=== PATIENT | female | born 1935 | race Caucasian/White ===

== ENCOUNTER 2018-12-31 10:48 | Emergency (ER) | payer MEDICARE ==
[~2018-12-31] VITALS: Ht 167.6 cm; Wt 79.4 kg
[~2018-12-31 10:48] MED LIST: ACET325 PO; ASPI325 PO; CEPH500 PO; CLON.1 PO; Ecotrin325 MG PO; INS70/30PN SC; INSDET100 SC; LEVFLO250 PO; LEVFLO500 PO; LORA1 PO; MECL25 PO; METO10 PO; Omeprazole20 M1 PO
[2018-12-31 11:05] LABS: Calcium, Ionized (POC) 0.99 mmol/L (1.10-1.46); Chloride (POC) 111 mmol/L (98-108); Creatinine (POC) 1.6 mg/dL (0.6-1.0); Glucose (ISTAT POC) 356 mg/dL (70-99); Hemoglobin (POC) 12.9 g/dL (12.0-16.0); Potassium (POC) 6.3 mmol/L (3.5-5.5); Sodium (POC) 136 mmol/L (135-148); Total CO2 (POC) 20 mmol/L (21-32)
== END 2018-12-31 10:54 ==
LOC: ER 10:48
PROVIDERS: Emergency Medicine
DX: I46.9 Cardiac arrest, cause unspecified (principal); E11.9 Type 2 diabetes mellitus without complications; I10 Essential (primary) hypertension; Z79.899 Other long term (current) drug therapy; Z79.4 Long term (current) use of insulin; Z79.82 Long term (current) use of aspirin; Z86.73 Personal history of transient ischemic attack (TIA), and cerebral infarction without residual deficits
CPT/HCPCS: 80047; 85014; 92950; 96374; 96375; 99285-25